=== PATIENT | female | born 2000 | race Caucasian/White ===

== ENCOUNTER 2024-10-14 21:07 | Emergency (ER) | payer BC, SELFPAY ==
[2024-10-14 21:08] VITALS: BP 134/88
--- NOTE | 2024-10-14 22:58 | ED.SKININJ ---
HPI-Injury
General
Chief Complaint: Bite
Source: patient
Time Seen by Provider: 10/14/24 22:23
History of Present Illness-Injury
Initial Injury comments:
24-year-old female presented to the ER for evaluation after she was accidentally bit on the right palm by a friend's dog earlier this evening. Dog's vaccines are up-to-date. Patient's tetanus vaccine is up-to-date. She is right-hand dominant. No
other injuries were sustained.
Past History
Past History
ED Past Medical History: None
ED Past Surgical History: None
Social History
Tobacco: Non-smoker
Alcohol: None
Drug: None
Personal: Single
Living: with family
Review of Systems
Review of Systems
All Other Systems: ROS reviewed and negative except as documented in HPI and ROS
Phy Exam
Physical Exam
Physical Exam:
GENERAL: Alert , in no apparent distress
EYE: conjunctiva clear
Head: Normocephalic atraumatic
NECK: Supple,
ENT: mmm.
LUNGS: no acute respiratory distress
NEUROLOGICAL: Alert and oriented
SKIN: Warm and dry, small puncture palmar surface without bleeding
MUSCULOSKELETAL: well perfused.
PSYCH: Normal and appropriate interaction.
Scores
Heart Failure Risk
Heart Failure Risk Score: Not Applicable
Heart Score for Chest Pain Patients
STEMI patient?: Not applicable
Withdrawal Assessment of Alcohol
Withdrawal Assessment Completed?: Not applicable
Course
Vital Signs
Initial and Last Documented VS:
Initial Vital Signs
Temp Resp BP Pulse Ox
98.6 F 16 134/88 100
10/14/24 21:08 10/14/24 21:08 10/14/24 21:08 10/14/24 21:08
Last Documented Vital Signs
Temp Resp BP Pulse Ox
98.6 F 16 134/88 100
10/14/24 21:08 10/14/24 21:08 10/14/24 21:08 10/14/24 22:59
MDM/Problems Addressed
Differential Diagnosis Includes:
Puncture wound
no concern for fracture
No foreign body
MDM/Problems Addressed:
Superficial puncture wound to the palmar surface of the right hand. This was copiously irrigated with normal saline. Short-term course of Augmentin prescribed. Patient advised on wound care. Stable for discharge.
*Pulse Oximetry
SaO2: 100
Oxygen Mode of Delivery: Room air
Patient hypoxic: no
*Critical Care Note
Total Time (30-74mins, 75-104mins- exclusive of procedures): Not Applicable
ED Attending Note
-
Portions of this chart may have been created with voice recognition software.� Occasional wrong word or��sound alike� substitutions may have occurred due to the inherent limitations of voice recognition software.
Discharge Plan
Departure
Patient Disposition: Home (Routine Discharge)
Date of Disposition: 10/14/24
Time of Disposition: 22:59
Patient with high blood pressure during this ER visit?: No
Discharge Problem:
Dog bite of right hand
Instructions: Wound Care (DC)
Prescriptions:
New
amoxicillin-pot clavulanate 875-125 mg tablet
1 tab PO BID 5 Days Qty: 10 0RF
Referrals:
Pedro Chery DO [Family Provider, Family Practice]
Interventions
Interventions:
*Risk Screen - Suicide Last Done: 10/14/24 21:08
*General Assessment Last Done: 10/14/24 21:08
*Neglect/Abuse Screening Last Done: 10/14/24 21:08
*ED- Fall Risk Assessment Last Done: 10/14/24 23:21
*ED COVID-19 Vaccine History Last Done: 10/14/24 23:21
*Nursing Disposition Last Done: 10/14/24 23:23
ED-Skin Assessment Last Done: 10/14/24 23:21
Discharge Date and Time
Discharge Date/Time: 10/14/24 23:25
Print Language: [id number]
[2024-10-14 23:21] VITALS: BMI 22.4
== END 2024-10-14 23:25 | disposition home or self-care (01) ==
LOC: EMR 21:07
PROVIDERS: EMERGENCY PHYSICIAN Student in an Organized Health Care Education/Training Program; FAMILY PHYSICIAN Family Medicine
DX: S61.431A Puncture wound without foreign body of right hand, initial encounter (principal); W54.0XXA Bitten by dog, initial encounter
CPT/HCPCS: 99283